=== PATIENT | male | born 1985 | race Two or more races ===

== ENCOUNTER 2021-10-18 12:37 | Emergency (ER) | payer SELFPAY ==
[2021-10-18] MEDS ORDERED: Ibuprofen 600 MG Tab PO ONE (13:41)
[2021-10-18] MEDS ORDERED: Cyclobenzaprine 10 MG Tab PO ONE (13:41)
[2021-10-18] MEDS ORDERED: Acetaminophen 500 MG Tab PO ONE (13:41)
--- NOTE | 2021-10-18 13:46 | EDM.PDOC ---
ED HPI GENERAL MEDICAL PROBLEM - General Chief Complaint: Upper Extremity Injury/Pain Stated Complaint: R FORARM SWOLLEN Time Seen by Provider: 10/18/21 12:39 Source of Information: Reports: Patient History Limitations: Reports: No Limitations - History of Present Illness INITIAL COMMENTS - FREE TEXT/NARRATIVE: 36-year-old male no past medical history presents for right distal forearm swelling. 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 He was pulling something early this week and felt a pain in his right sided forearm. Denies any blunt trauma to the area. Afterwards he has noted persistent swelling and pain. It was initially getting better but over the last couple of days seems to be worsening. It is associated with subjective reduced mechanical applications engineer strength of the right upper extremity. It is painful to flex or extend his wrist or mechanical applications engineer objects. Right Arm Pain Score (Numeric/FACES): 9 - Related Data Allergies Allergy/AdvReac Type Severity Reaction Status Date / Time No Known Allergies Allergy Verified 10/18/21 13:46 Home Meds: Home Meds Cyclobenzaprine [Flexeril] 10 mg PO TID PRN #20 tab 10/18/21 [Rx] Ibuprofen [Motrin] 600 mg PO Q6H PRN #30 tab 10/18/21 [Rx] Rivaroxaban [Xarelto] 20 mg PO DAILY 10/18/21 [History] Review of Systems - Review of Systems Review Of Systems: Comprehensive ROS is negative, except as noted in HPI. ED EXAM, GENERAL - Physical Exam Exam: See Below Exam Limited By: No Limitations General Appearance: Alert, WD/WN, No Apparent Distress Ears: Hearing Grossly Normal Throat/Mouth: Normal Voice, No Airway Compromise Head: Atraumatic, Normocephalic Respiratory/Chest: No Respiratory Distress, Lungs Clear, Normal Breath Sounds, No Accessory Muscle Use Cardiovascular: Normal Peripheral Pulses, Regular Rate, Rhythm Extremities: Other (swelling of distal R forearm with TTP, no overt deformity, normal R radial pulse, no snuffbox TTP, reduced mechanical applications engineer strength 2/2 pain) Neurological: Alert, Normal Cognition, Normal Gait Psychiatric: Normal Affect, Normal Mood Skin Exam: Warm, Dry, Intact, Normal Color Course - Vital Signs Last Recorded V/S: Last Vital Signs Temp 98.7 F 10/18/21 13:49 Pulse 80 10/18/21 13:49 Resp 17 10/18/21 13:49 BP 139/87 10/18/21 13:49 Pulse Ox 94 L 10/18/21 13:49 - Orders/Labs/Meds Meds: Medications Discontinued Medications Generic Name Dose Route Start Last Admin Trade Name Jose PRN Reason Stop Dose Admin Acetaminophen 1,000 mg 10/18/21 13:41 10/18/21 13:54 Acetaminophen 500 Mg Tab PO 10/18/21 13:42 1,000 mg ONETIME ONE Administration Cyclobenzaprine HCl 10 mg 10/18/21 13:41 10/18/21 13:54 Cyclobenzaprine 10 Mg Tab PO 10/18/21 13:42 10 mg ONETIME ONE Administration Ibuprofen 600 mg 10/18/21 13:41 10/18/21 13:53 Ibuprofen 600 Mg Tab PO 10/18/21 13:42 600 mg ONETIME ONE Administration - Re-Assessments/Exams Free Text/Narrative Re-Assessment/Exam: 10/18/21 13:46 We will treat symptomatically with Motrin, Tylenol, Flexeril. Will get x-ray imaging of the wrist and forearm. 10/18/21 14:27 No osseous abnormality on x-ray imaging. Will discharge patient with prescription for Motrin and Flexeril. Will place patient on orthopedic referral list. Departure - Departure Time of Disposition: 14:27 Disposition: Home, Self-Care 01 Condition: Good Clinical Impression: Forearm injury Qualifiers: Encounter type: initial encounter Laterality: right Qualified Code(s): S59.911A - Unspecified injury of right forearm, initial encounter - Discharge Information Instructions: Contusion, [id number] Forms: ED Department Discharge Additional Instructions: Your x-ray imaging does not show any fracture or dislocation of your bones. However, I am concerned about the underlying muscles. I would follow-up with an orthopedic physician and consider MRI imaging. Information is provided below for our local orthopedic physician and you have been placed on their follow-up list so they are expecting a phone call and should be able to fit you in for an appointment coming up. I have also sent prescriptions to your pharmacy for a pain medicine called Motrin as well as a muscle relaxant called Flexeril which may help with your symptoms. Meds sent to [facility] The following information is given to patients seen in the emergency department who are being discharged to home. This information is to outline your options for follow-up care. We provide all patients seen in our emergency department with a follow-up referral. The need for follow-up, as well as the timing and circumstances, are variable depending upon the specifics of your emergency department visit. If you don't have a primary care physician on staff, we will provide you with a referral. We always advise you to contact your personal physician following an emergency department visit to inform them of the circumstance of the visit and for follow-up with them and/or the need for any referrals to a consulting specialist. The emergency department will also refer you to a specialist when appropriate. This referral assures that you have the opportunity for follow-up care with a specialist. All of these measure are taken in an effort to provide you with optimal care, which includes your follow-up. Under all circumstances we always encourage you to contact your private physician who remains a resource for coordinating your care. When calling for follow-up care, please make the office aware that this follow-up is from your recent emergency room visit. If for any reason you are refused follow-up, please contact the [facility] Emergency Department at and asked to speak to the emergency department charge nurse. Please follow up with your primary care physician. If you do not have a primary care physician, see below: [facility] [address] [place] [id number] [facility] [address] [place] [address] [facility] [address] [place] [id number] Sepsis Event Note (ED) - Focused Exam Vital Signs: Vital Signs Temp Pulse Resp BP Pulse Ox 10/18/21 13:49 98.7 F 80 17 139/87 94 L
--- NOTE | 2021-10-18 14:04 | CR ---
Indication: Work injury Technique: Three views right wrist Comparison: No comparison Findings: Normal alignment. No acute fractures seen. Tiny corticated ossific density along the dorsal aspect the metacarpals age indeterminate however this appears probably old. Suspect old 4th and 5th metacarpal fracture deformities. Dictated by Claudia Read MD @ 10/18/2021 2:03:48 PM (Electronically Signed)
--- NOTE | 2021-10-18 14:06 | CR ---
HISTORY: Injury. TECHNIQUE: Two views of the right forearm. COMPARISON: No prior. FINDINGS: There is no acute radial or ulnar fracture. Remote fractures of the 4th and 5th metacarpal bones. No radiopaque foreign body or soft tissue gas. IMPRESSION: No acute right radial or ulnar fracture. Dictated by Rick Grady MD @ 10/18/2021 2:04:31 PM (Electronically Signed)
== END 2021-10-18 14:43 | disposition home or self-care (01) ==
LOC: MW.ED 12:37
DX: S59.911A Unspecified injury of right forearm, initial encounter (principal); X50.0XXA Overexertion from strenuous movement or load, initial encounter; Y92.89 Other specified places as the place of occurrence of the external cause; Y99.0 Civilian activity done for income or pay
CPT/HCPCS: 73090; 73110; 99283; A9270

== ENCOUNTER 2021-12-16 08:11 | Emergency (ER) | payer MEDICAID ==
[2021-12-16] MEDS ORDERED: Azithromycin 250 MG Tab PO STA (08:24)
[2021-12-16] MEDS ORDERED: cefTRIAXone 500 MG in Lidocaine 1% 1 ML IM ONE (08:24)
[2021-12-18 14:12] LABS: C.TRACHOMATIS BY TMA Negative (Negative); N.GONORRHOEAE BY TMA Negative (Negative)
== END 2021-12-16 09:08 | disposition home or self-care (01) ==
LOC: MW.ED 08:11
DX: R30.0 Dysuria (principal); Z79.01 Long term (current) use of anticoagulants
CPT/HCPCS: 81001; 87491; 87591; 96372; 99283; A9270; J0696